=== PATIENT | male | born 1990 | race Caucasian/White ===

== ENCOUNTER 2023-02-05 09:55 | Emergency (ER) | payer OTHER, SELFPAY ==
[2023-02-05] VITALS (10 sets, daily range): BP systolic 121–144; BP diastolic 56–93; PULSE 90–109; RESP 16–26; TEMP 37.5–39.3; O2SAT 97–99; BMI 26.8
--- NOTE | ~2023-02-05 | CT_ITS ---
CT FACIAL BONES WITH CONTRAST CLINICAL INFORMATION: Dental infection lower right molar. Question abscess. COMPARISON: None available. TECHNIQUE: Multidetector CT acquisition of the maxillofacial region is obtained following the administration of 85 mL of Omnipaque 350 intravenous contrast without complication. This CT examination was performed using dose optimization techniques as appropriate, variously including the following: *Automated exposure control *Adjustment of mA and/or kV according to patient size (this includes techniques or standardized protocols for targeted exams where dose is matched to indication/reason for exam; i.e. extremities or head) *Use of iterative reconstruction technique FINDINGS: The impacted right third mandibular molar exhibits a prominent dental carry and there is lucency surrounding the crown of the impacted right third mandibular molar which can be correlated with dental exam. There is phlegmon and cellulitis within the right perimandibular soft tissues surrounding this location and there is cellulitis within the right buccal space and more superficial right facial soft tissues as well as within the anterior triangle of the right suprahyoid and infrahyoid neck. There is a multiloculated abscess extending into and significantly expanding the right medial pterygoid muscle which likely measures up to 2.5 cm in size. The mastoid air cells and middle ear cavities are clear. TMJs are unremarkable. Moderate mucosal thickening within the maxillary sinuses, ethmoid air cells, and frontal sinuses bilaterally. Mild mucosal thickening within the sphenoid sinuses bilaterally. There is leftward deviation of the nasal septum. CT/CT facial bones w IV con IMPRESSION: - The impacted right third mandibular molar exhibits a prominent dental carry and there is lucency surrounding the crown of the impacted right third mandibular molar which can be correlated with dental exam. There is phlegmon and cellulitis within the right perimandibular soft tissues surrounding this location and there is cellulitis within the right buccal space and more superficial right facial soft tissues as well as within the anterior triangle of the right suprahyoid and infrahyoid neck. - There is a multiloculated abscess extending into and significantly expanding the right medial pterygoid muscle which likely measures up to 2.5 cm in size. Surgical consultation advised. - Moderate sinus mucosal disease. Significant leftward deviation of the nasal septum.
--- NOTE | 2023-02-05 11:01 | ED.DENTAL ---
HPI - Dental/Oral General Chief complaint: Dental/Oral Stated complaint: Dental infection Time Seen by Provider: 02/05/23 11:00 Source: patient and family Mode of arrival: ambulatory Limitations: no limitations History of Present Illness HPI Narrative: 32-year-old male with no significant pmhx presents to the ED today with right dental pain and facial swelling x1 week. States that he was supposed to have his bottom right wisdom tooth extracted 2 weeks ago however he canceled the procedure. He reports increasing pain to the bottom right wisdom tooth. Over the last couple of days there has been significant swelling to his right jaw and he is having trouble opening his mouth. Reports pain on swallowing however he is controlling his secretions. States he has been taking everything at home for pain however pain has not improved. He is not currently on antibiotics. Has not followed up with a dentist since. Reports fever of 102F at home. Denies headache, dizziness, N/V, chest pain, shortness breath. Related Data Allergies Allergy/AdvReac Type Severity Reaction Status Date / Time No Known Allergies Allergy Verified 02/05/23 10:00 Review of Systems Review of Systems: Constitutional: +fever, +chills, No fatigue, night sweats, weight changes ENT/Mouth: No ear pain, hearing loss, nasal congestion, sinus pain, rhinorrhea, sore throat, +dental pain, +facial swelling, +trismus Eyes: No eye pain, swelling, redness, vision changes, discharge Cardio: No chest pain, palpitations, BROWN, orthopnea, peripheral edema Pulm: No SOB, cough, sputum, wheezing, dyspnea, hemoptysis GI: No nausea, vomiting, hematemesis, abdominal pain, diarrhea, constipation, hematochezia, melena : No irregular bleeding, dysuria, frequency, urgency, hesitancy, hematuria, flank pain, urinary flow changes, urinary incontinence or retention MSK: No back pain, neck pain, joint pain, myalgias Skin: No lesions, rashes Neuro: No weakness, numbness, paresthesias, LOC, dizziness, headache All other systems reviewed and are negative. [facility] Past Medical History Attestation statement: The following information was validated with the patient. Source: old records reviewed and nursing notes reviewed Social History Alcohol intake: current Alcohol intake frequency: holidays/special occasions only Smoked in Last 30 Days: Yes Use of substances other than those prescribed or required for medical reasons: Yes Substance Use Type: Marijuana Advance Directives: No Physical Exam Vital Signs: Vital Signs: Last Vital Signs Temp 99.5 F 02/05/23 13:25 Pulse 99 02/05/23 14:18 Resp 18 02/05/23 14:18 BP 129/83 02/05/23 14:18 Pulse Ox 98 02/05/23 14:18 O2 Del Method Room Air 02/05/23 14:18 BMI result Body Mass Index 26.8 Vital signs notable for tachypnea, tachycardia, fever Const: Other: + patient ill-appearing, pale, tremulous General: cooperative, alert, awake and ill appearing; No diaphoretic Orientation/consciousness: patient oriented x3 Limitations: no limitations HEENT: Other: + patient with significant swelling to right jawline. He is unable to open his mouth more than a few cm on exam secondary to edema/pain making it impossible for me to visualize posterior teeth and posterior oropharnx. I attempted to palpate the buccal mucosa however patient is writhing in pain and will not let me complete the exam. Tender to palpation over the right lower jaw. No palpable fluctuance. No lymphadenopathy. Controlling secretions. Speaking in complete sentences. Head: Yes normal to inspection Ears: hearing grossly normal bilaterally, external ears normal, TM's normal bilaterally, EAC's normal, mastoids normal and no periauricular adenopathy General nose exam: Normal external nose present Eyes: Periorbital: periorbital findings normal Conjunctivae: conjunctivae normal Sclerae: sclerae normal Pupils: Equal, round and reactive pupils present EOM: EOMs intact bilaterally Resp: Effort & Inspection: normal respiratory effort and able to speak in complete sentences Auscultation: clear to auscultation bilaterally Cardio: Rate: regular rate Rhythm: regular rhythm Peripheral pulses: radial pulses present, posterior tibial pulses present and dorsalis pedis present GI: Inspection: Yes normal to inspection Skin: Other: + pale skin General skin exam: no rashes or lesions noted and no mottling Neuro: General: patient oriented x3, gait normal and moves all extremities Cranial nerves: Yes Equal, round and reactive pupils present Extrem: General: Yes normal to inspection and Yes capillary refill normal Course Course Course Narrative: 1120-- Patient is tachycardic, tachypneic with a fever of 102. Sepsis is suspected. Lactic, blood cultures and IV unasyn ordered. 1135-- CBC with leukocytosis to 12.2 with left shift. No anemia. Chemistry without electrolyte abnormalities requiring intervention. Lactic 1.4 > will repeat. Serology pending. CT facial bones pending. 1153-- Elevated sed rate and CRP. Serology negative for flu, RSV, COVID. Pending CT facial bones. IV morphine ordered for pain. 1410-- CT facial bones showing impacted right third mandibular molar with prominent carry and lucency surrounding the. There is phlegmon and cellulitis within the right perimandibular soft tissues and cellulitis within the right buccal space, superficial right facial soft tissues, and anterior triangle of the right suprahyoid and infrahyoid neck. There is a multiloculated abscess extending/expanding into the right medial pterygoid muscle measuring 2.5 cm in size. There is moderate sinus mucosal disease with a significant leftward deviation of the nasal septum. > Patient requires OMFS > Will reach out to [facility], [facility] for transport. [facility] and [facility] have declined transfer. I spoke with the transfer team at [facility] who has accepted patient transfer. Patient to be transferred to [facility] ED to ED for OMFS with accepting doctor, Dr. Abreu. Images sent to [facility] image connect. They recommend that until patient is transported to their ED, he should receive Unasyn every 6 hours. Will continue to monitor. 1423-- Repeat lactic 0.7 after fluid administration. Will continue to monitor pending transfer to acute care hospital. Medications Administered Discontinued Medications Generic Name Dose Route Start Last Admin Trade Name Luisq PRN Reason Stop Dose Admin Acetaminophen 650 mg 02/05/23 11:54 02/05/23 11:59 Acetaminophen Oral Liquid 650 Mg/20.3 Ml Solution PO 02/05/23 11:55 650 mg ONCE ONE Administration Ampicillin Sodium/Sulbactam 100 mls @ 200 mls/hr 02/05/23 11:10 02/05/23 11:50 Sodium 3 gm/ Sodium Chloride IV 02/05/23 11:39 Infused ONCE ONE Infusion Sodium Chloride 3,000 mls @ 3,000 mls/hr 02/05/23 11:16 02/05/23 12:20 Ns 30 ml/kg infuse over 1 hr (3000 ml) 02/05/23 12:15 Infused IV Infusion .Q1H STA Iohexol 100 ml 02/05/23 13:04 02/05/23 13:05 Iohexol 350 Mg/Ml 100 Ml Infus..Btl IV 02/05/23 13:05 85 ml ONCE ONE Administration Morphine Sulfate 4 mg 02/05/23 11:52 02/05/23 11:59 Morphine Sulfate 4 Mg/Ml Cartridge IVPUSH 02/05/23 11:53 4 mg ONCE ONE Administration Protocol Morphine Sulfate 4 mg 02/05/23 14:26 02/05/23 14:31 Morphine Sulfate 4 Mg/Ml Cartridge IVPUSH 02/05/23 14:27 4 mg ONCE ONE Administration Protocol Ondansetron HCl 4 mg 02/05/23 15:50 02/05/23 15:54 Ondansetron Hcl 4 Mg/2 Ml Vial IVPUSH 02/05/23 15:51 4 mg ONCE ONE Administration Medical Decision Making Medical Decision Making MDM Narrative: 32-year-old male with no significant pmhx presents to the ED today with right dental pain and facial swelling x1 week. Vital signs initially notable for tachypnea, tachycardia, fever to 102. Liquid Tylenol ordered > patient's temp now 99.5. Patient is ill-appearing, pale, tremulous. There is significant swelling noted to the right lower jawline and into the right side of the neck. Patient only able to open his a male a few cm due to pain/swelling. Exam limited due to patient's pain and inability to open mouth. I am unable to palpate or visualize the right buccal mucosa or lower teeth. He is controlling secretions and speaking in complete sentences. No mastoid tenderness. Lungs CTA bilaterally. Cap refill less than 2 seconds throughout. No rashes. Clinical concern for dental infection, dental abscess, sinus infection, viral infection, sepsis. Lower suspicion for strep throat, retropharyngeal abscess, STRAPPER, epiglottitis. Unlikely sialadenitis, sialolithiasis. Unlikely mastoiditis, otitis media/externia, malignant otitis externa. Labs, lactate, blood cultures ordered in triage. Plan for IV antibiotics. Sepsis alert initiated. Differential Diagnosis Differential Diagnoses: The differential diagnosis associated with the presentation includes As above. Admission/Observation Consideration of admission/observation: Escalation of care including admission/observation considered Admission was considered for this patient however [facility] does not have the proper services for this patient so he will be transferred to acute care facility. Consult Healthcare Provider Management of the patient was discussed with: Residential Specialist ([facility]) Lab Data MDM Lab Attestation statement: I reviewed the patient's lab results. As above. 02/05/23 10:56 02/05/23 10:56 Labs: Lab Results 02/05/23 02/05/23 02/05/23 Range/Units 10:56 10:57 14:23 WBC 12.2 H (4.8-10.8) X10*3/uL RBC 4.62 (4.60-5.80) X10*6/uL Hgb 14.2 (14.0-18.0) g/dl Hct 41.4 L (42.0-52.0) % MCV 89.6 (80.0-98.0) fL MCH 30.7 (27.0-33.0) pg MCHC 34.3 (31.0-36.0) g/dl RDW 12.7 (11.0-16.0) % Plt Count 161 (160-400) X10*3/uL MPV 9.6 (9.4-12.4) fL Immature Gran % (Auto) 0.4 (0.0-0.4) % Neut % (Auto) 85.9 H (45-73) % Lymph % (Auto) 4.1 L (20-40) % Ogle % (Auto) 9.4 (2-11) % Eos % (Auto) 0.0 (0-4) % Baso % (Auto) 0.2 (0-2) % Lymph # (Auto) 0.5 L (1.2-4.9) X10*3/uL Ogle # (Auto) 1.2 (0.1-1.2) X10*3/uL Eos # (Auto) 0.0 (0.0-0.4) X10*3/uL Baso # (Auto) 0.0 (0.0-0.2) X10*3/uL Abs Immat Gran (auto) 0.05 H (0.00-0.03) X10*3/uL Absolute Neuts (auto) 10.5 H (2.0-8.3) x10*3/uL Absolute Nucleated RBC 0.000 (0.0-0.012) X10*3/uL Nucleated RBC % (auto) 0.0 (0.0-0.2) /100WBC ESR 16 H (0-15) MM/HR Sodium 136 (135-145) mmol/L Potassium 4.1 (3.3-5.1) mmol/L Chloride 102 (96-108) mmol/L Carbon Dioxide 28 (22-29) mmol/L Anion Gap 10 L (12-20) BUN 11 (9-16) mg/dL Creatinine 0.94 (0.5-1.4) mg/dL Estim Creat Clear Calc 137.2 Estimated GFR > 60 Random Glucose 113 (60-115) mg/dL Lactic Acid 1.4 0.7 (0.5-2.0) mmol/L Calcium 9.8 (8.4-10.2) mg/dL C-Reactive Protein 11.82 H (< or = 0.50) mg/dL Influenza Type A (PCR) NEGATIVE (Negative) Influenza Type B (PCR) NEGATIVE (Negative) RSV RNA Qual (PCR) NEGATIVE (Negative) SARS-CoV-2 RNA (RT-PCR) NEGATIVE (Negative) Independent Interpretation I performed an independent interpretation of an: CT Scan Interpretation: CT facial bones with contrast showing multiloculated abscess, agree with radiologist's interpretation. Radiology Impression Discussion of test interpretation with radiology: I have reviewed the radiologist's reading. Radiologist Impression: CT facial bones w IV con IMPRESSION: - The impacted right third mandibular molar exhibits a prominent dental carry and there is lucency surrounding the crown of the impacted right third mandibular molar which can be correlated with dental exam. There is phlegmon and cellulitis within the right perimandibular soft tissues surrounding this location and there is cellulitis within the right buccal space and more superficial right facial soft tissues as well as within the anterior triangle of the right suprahyoid and infrahyoid neck. - There is a multiloculated abscess extending into and significantly expanding the right medial pterygoid muscle which likely measures up to 2.5 cm in size. Surgical consultation advised. - Moderate sinus mucosal disease. Significant leftward deviation of the nasal septum. External Record Review External record reviewed: Inpatient record Prescription Management I considered prescription management with: Pain Medication, Antibiotic and Other (Antiemetic) Social Determinants Patient?s care significantly limited by Social Determinants of Health including: Other Social Determinant of Health Critical Care Time Critical Care Time Critical Care Time: Yes Total Critical Care Time: 120 Attestation: Critical care time in the amount of 120 minutes has been provided to the patient in terms of direct patient care, frequent reevaluation, consultation with [facility], [facility], and [facility] for transfer, review and interpretation of medical data and results, and management of potentially life-threatening conditions. This is all outside of any medical procedures. Discharge Plan Discharge Clinical Impression: Dental abscess Patient Disposition: [facility] Transfer Details: [facility] Emergency Department, accepting doctor Dr. Abre[place]
[2023-02-05 11:04] LABS: MANUAL DIFF FLAG NO
[2023-02-05 11:09] LABS: Basophils Percent Auto 0.2 % (0-2); Hematocrit 41.4 % (42.0-52.0); Hemoglobin 14.2 g/dl (14.0-18.0); Imm Gran Abs Auto 0.05 X10*3/uL (0.00-0.03); Imm Gran Pct Auto 0.4 % (0.0-0.4); Lymphocytes Absolute Auto 0.5 X10*3/uL (1.2-4.9); Lymphocytes Percent Auto 4.1 % (20-40); Mean Corpuscular HGB Conc 34.3 g/dl (31.0-36.0); Mean Corpuscular Hemoglobin 30.7 pg (27.0-33.0); Mean Corpuscular Volume 89.6 fL (80.0-98.0); Mean Platelet Volume 9.6 fL (9.4-12.4); Monocytes Absolute Auto 1.2 X10*3/uL (0.1-1.2); Monocytes Percent Auto 9.4 % (2-11); Neutrophils Absolute Auto 10.5 x10*3/uL (2.0-8.3); Neutrophils Percent Auto 85.9 % (45-73); Platelet Count 161 X10*3/uL (160-400); Red Blood Count 4.62 X10*6/uL (4.60-5.80); Red Cell Distribution Width 12.7 % (11.0-16.0); White Blood Count 12.2 X10*3/uL (4.8-10.8)
--- NOTE | 2023-02-05 11:10 | PC.NURSE ---
a&ox3, sinus tachy on alarm security or surveillance monitor, febrile w/ temp of 102.8 orally. two, 20gIVs placed in the AC's w/o difficulty - labs drawn and sent to lab. provider bedside assessing pt/aware of plan of care at this time. pt verbalizing 10/10 right jaw/wisdom tooth pain that started last saturday. pt has been to multiple facilities but had no luck w/ tooth removal. pt was supposed to have tooth removed 01/16 but did not d/t fear of going to dentist. pt verbalizing difficulty swallowing. no sob/wob noted at this time. spouse bedside for support. respirations even and unlabored. call lea placed within reach.
[2023-02-05 11:16] LABS: Lactic Acid 1.4 mmol/L (0.5-2.0)
[2023-02-05 11:19] LABS: Anion Gap 10 (12-20); Blood Urea Nitrogen 11 mg/dL (9-16); C Reactive Protein 11.82 mg/dL (< or = 0.50); Calcium 9.8 mg/dL (8.4-10.2); Carbon Dioxide 28 mmol/L (22-29); Chloride 102 mmol/L (96-108); Creatinine Clr Calc Pharmacy 137.2; Estimated Glomerular Filt Rate > 60; Glucose Random 113 mg/dL (60-115); Potassium 4.1 mmol/L (3.3-5.1); Sodium 136 mmol/L (135-145)
[2023-02-05] MEDS: Ampicillin Sodium/Sulbactam Na 3 GM in 0.9 % Sodium Chloride 100 ML IV (11:20)
[2023-02-05] MEDS: 0.9 % Sodium Chloride 3,000 ML 3000 ML IV (11:20)
--- NOTE | 2023-02-05 11:30 | PC.NURSE ---
medication administered per provider order. sepsis protocol initiated/paperwork currently being filled out.
[2023-02-05 11:47] LABS: Erythrocyte Sedimentation Rate 16 MM/HR (0-15)
[2023-02-05 11:47] LABS: Influenza A PCR NEGATIVE (Negative); Influenza B PCR NEGATIVE (Negative); Resp Syncy Virus RNA Qual PCR NEGATIVE (Negative); SARS COV2 PCR INHOUSE NEGATIVE (Negative)
[2023-02-05] MEDS: Acetaminophen Oral Liquid 650 MG/20.3 ML SOLUTION PO (11:59)
[2023-02-05] MEDS: Morphine Sulfate 4 MG/ML CARTRIDGE IVPUSH ×2 (11:59→14:31)
--- NOTE | 2023-02-05 12:02 | PC.NURSE ---
medication administered per provider order. will reassess pain level and fever shortly.
--- NOTE | 2023-02-05 12:25 | PC.NURSE ---
sepsis protocol paperwork completed/given to medical secretary at this time. pt's fever continues to decrease at this time.
[2023-02-05] MEDS: iohexoL 350 MG/ML 100 ML INFUS..BTL IV (13:05)
--- NOTE | 2023-02-05 13:55 | PC.NURSE ---
pt still verbalizing 10/10 right tooth/jaw pain at this time. provider aware. pt provided w/ [email or web address]-[email or web address] until medication is ordered/administered. pt in distress/tearful d/t pain. respirations remain even and unlabored. pt awaiting CT results. partner bedside. call lea placed within reach.
--- NOTE | 2023-02-05 14:27 | PC.NURSE ---
repeat lactic obtained and sent to lab.
--- NOTE | 2023-02-05 14:35 | PC.NURSE ---
medication administered per provider order.
[2023-02-05 14:44] LABS: Lactic Acid 0.7 mmol/L (0.5-2.0)
--- NOTE | 2023-02-05 15:21 | PC.NURSE ---
pt verbalizing pain level decreased to a 5/10 post medication administration - states he is now nauseous. will notify provider.
[2023-02-05] MEDS: ondansetron HCL 4 MG/2 ML VIAL IVPUSH (15:54)
== END 2023-02-05 15:35 | disposition short-term general hospital (02) ==
PROVIDERS: Physician Assistant Medical; Emergency Provider Emergency Medicine Emergency Medical Services
DX: K04.7 Periapical abscess without sinus (principal); R22.1 Localized swelling, mass and lump, neck; R07.0 Pain in throat; R00.0 Tachycardia, unspecified; R50.9 Fever, unspecified; Z20.822 Contact with and (suspected) exposure to COVID-19; Z20.828 Contact with and (suspected) exposure to other viral communicable diseases; Z79.899 Other long term (current) drug therapy
CPT/HCPCS: 0241U; 36415; 70487; 80048; 83605; 85025; 85652; 86140; 87040; 96361; 96365; 96375; 96376; 99285; J0295; J2270; J2405; Q9967